=== PATIENT | female | born 1990 | race American Indian/Alaskan Native ===

== ENCOUNTER 2018-02-27 14:46 | Emergency (ER) | payer SELFPAY ==
[2018-02-27] MEDS ORDERED: TYLENOL ONE (15:22)
[2018-02-27] MEDS ORDERED: TYLENOL PO ONE (15:24)
[2018-02-27] MEDS ORDERED: FUL-GLO OP ONE (17:53)
[2018-02-27] MEDS ORDERED: TETRACAINE 0.5% OU ONE (17:54)
--- NOTE | 2018-02-27 18:28 | Emergency Department Report ---
ED Eye Problem HPI - General Chief complaint: Eye Problems Stated complaint: EYE IRRITATION Time Seen by Provider: 02/27/18 17:32 Source: patient Mode of arrival: Ambulatory Limitations: No Limitations - History of Present Illness Initial comments: 27-year-old female past medical history of ulcerative colitis, migraines presents with complaint of irritation and redness I adjacent to the right eye below the right eyelid with associated blisters. Patient denies any direct trauma denies any contact lens use denies using glasses. Denies blurry vision. MD chief complaint: eye pain, eye redness Onset/Timin -: days(s) Location: right eye If Injury: none Eye Symptoms: burning, redness, itching Severity: mild If Pain, Quality: burning Treatments Prior to Arrival: OTC eye drops - Related Data Previous Rx's Medication Instructions Recorded Last Taken Type Acetaminophen/Codeine [Tylenol 1 tab PO Q6H PRN #9 tab 02/27/18 Unknown Rx /Codeine # 3 tab] Erythromycin [Erythromycin Ophth 1 applic OP QID #1 tube 02/27/18 Unknown Rx Oint] Ibuprofen [Motrin] 800 mg PO Q8HR PRN #20 tablet 02/27/18 Unknown Rx Valacyclovir HCl [Valtrex] 1,000 mg PO Q8H #21 tablet 02/27/18 Unknown Rx Allergies Allergy/AdvReac Type Severity Reaction Status Date / Time No Known Allergies Allergy Unverified 02/27/18 15:21 ED Review of Systems ROS: Stated complaint: EYE IRRITATION Other details as noted in HPI Constitutional: denies: chills, fever Eyes: as per HPI (pain below right eye near eyelid). denies: eye pain, eye discharge, vision change ENT: as per HPI. denies: ear pain, throat pain Respiratory: denies: cough, shortness of breath, wheezing Cardiovascular: denies: chest pain, palpitations Endocrine: no symptoms reported Gastrointestinal: denies: abdominal pain, nausea, diarrhea Genitourinary: denies: urgency, dysuria, discharge Musculoskeletal: denies: back pain, joint swelling, arthralgia Skin: denies: rash, lesions Neurological: denies: headache, weakness, paresthesias Psychiatric: denies: anxiety, depression Hematological/Lymphatic: denies: easy bleeding, easy bruising ED Past Medical Hx - Past Medical History Previous Medical History?: Yes Additional medical history: migraines, ulcertive colitis - Surgical History Past Surgical History?: No - Social History Smoking Status: Never Smoker Substance Use Type: None - Medications Home Medications: Home Medications Medication Instructions Recorded Confirmed Last Taken Type Acetaminophen/Codeine [Tylenol 1 tab PO Q6H PRN #9 tab 02/27/18 Unknown Rx /Codeine # 3 tab] Erythromycin [Erythromycin Ophth 1 applic OP QID #1 tube 02/27/18 Unknown Rx Oint] Ibuprofen [Motrin] 800 mg PO Q8HR PRN #20 tablet 02/27/18 Unknown Rx Valacyclovir HCl [Valtrex] 1,000 mg PO Q8H #21 tablet 02/27/18 Unknown Rx ED Physical Exam - General Limitations: No Limitations General appearance: alert, in no apparent distress - Head Head exam: Present: atraumatic, normocephalic - Eye Eye exam: Present: normal appearance, PERRL, EOMI Pupils: Present: normal accommodation - Expanded Eye Exam Expanded Pupils: Regular, Round: Bilateral, Reactive: Bilateral Sclera/Conjunctival: Normal Inspection: Bilateral, Injection: Right Visual acuity (R) = 20/: 20 Visual acuity (L) = 20/: 20 - ENT ENT exam: Present: mucous membranes moist - Neck Neck exam: Present: normal inspection - Respiratory Respiratory exam: Present: normal lung sounds bilaterally. Absent: respiratory distress - Cardiovascular Cardiovascular Exam: Present: regular rate, normal rhythm. Absent: systolic murmur, diastolic murmur, rubs, gallop - GI/Abdominal GI/Abdominal exam: Present: soft, normal bowel sounds - Extremities Exam Extremities exam: Present: normal inspection - Back Exam Back exam: Present: normal inspection - Neurological Exam Neurological exam: Present: alert, oriented X3 - Psychiatric Psychiatric exam: Present: normal affect, normal mood - Skin Skin exam: Present: warm, dry, intact, normal color. Absent: rash ED Course Vital Signs 02/27/18 02/27/18 15:22 18:38 Temperature 98.3 F 97.6 F Pulse Rate 87 72 Respiratory 18 Rate Blood Pressure 119/75 Blood Pressure 128/75 [Left] O2 Sat by Pulse 99 99 Oximetry ED Medical Decision Making - Medical Decision Making A/P: Possible vesicular eruption below right eye consistent with shingles, right -sided conjunctivitis 1- empiric treatment with Valtrex 2- discussed with ED attending before discharge 3- erythromycin ointment right eye 4- no dendritic lesions noted on fluorescein exam of right eye no corneal abrasion or corneal lesions otherwise. Patient's vision is intact 2020 bilaterally and 20/20 right eye. I referred patient to ophthalmology follow-up and emphasize the importance of following up. I advised patient to return to the ED for any fevers chills nausea decrease in vision or blurry vision. Patient stated she understood my instructions. Patient has no Mcelroy sign on physical exam of the face Critical care attestation.: If time is entered above; I have spent that time in minutes in the direct care of this critically ill patient, excluding procedure time. ED Disposition Clinical Impression: Irritation of right eye Shingles rash Qualifiers: Herpes zoster complications: without complications Qualified Code(s): B02.9 - Zoster without complications Disposition: TO HOME OR SELFCARE Is pt being admited?: No Does the pt Need Aspirin: No Condition: Stable Instructions: Herpes Zoster (ED) Prescriptions: Acetaminophen/Codeine [Tylenol /Codeine # 3 tab] 1 tab PO Q6H PRN #9 tab PRN Reason: Pain , Severe (7-10) Erythromycin [Erythromycin Ophth Oint] 1 applic OP QID #1 tube Ibuprofen [Motrin] 800 mg PO Q8HR PRN #20 tablet PRN Reason: Pain , Severe (7-10) Valacyclovir HCl [Valtrex] 1,000 mg PO Q8H #21 tablet Referrals: LUIS ENRIQUE CRESPO MD [Staff Physician] - 3-[address] [facility] [Provider Group] - 3-5 Days Forms: Accompanied Note, Work/School Release Form(ED) Time of Disposition: 18:28
[2018-02-27 18:40] VITALS: BP 128/75
== END 2018-02-27 18:38 | disposition home or self-care (01) ==
LOC: ED 14:46
DX: B02.9 Zoster without complications (principal); H57.8 Other specified disorders of eye and adnexa; G43.909 Migraine, unspecified, not intractable, without status migrainosus
CPT/HCPCS: 99283